=== PATIENT | male | born 1955 | race Caucasian/White ===

== ENCOUNTER 2023-03-28 03:48 | Emergency (ER) | payer OTHER ==
[~2023-03-28] VITALS: Ht 167.6 cm; Wt 90.7 kg
== END 2023-03-28 04:30 | disposition left against medical advice (07) ==
LOC: ED 03:48
DX: R06.02 Shortness of breath (principal)

== ENCOUNTER 2023-06-02 22:04 | Inpatient (IN) | payer OTHER ==
[~2023-06-02 22:04] MED LIST: DESMOPRESS10 MCG/0.1 INH; DICYCLOMINE HYD10 MG PO; LEVOTHYROXINE150 MCG PO; LINZESS290 MC1 PO; LUBIPROSTONE24 MCG PO; ONDANSETRON ODT8 MG PO; SENNA8.6 MG PO
[2023-06-02 22:15] VITALS: BP 88/57
== END 2023-06-03 11:30 | DRG 871 ==
LOC: 4E 22:04
PROVIDERS: ADMIT Student in an Organized Health Care Education/Training Program; ATTEND Student in an Organized Health Care Education/Training Program
DX: A41.9 Sepsis, unspecified organism (principal); I21.4 Non-ST elevation (NSTEMI) myocardial infarction; J18.9 Pneumonia, unspecified organism; N17.0 Acute kidney failure with tubular necrosis; J96.01 Acute respiratory failure with hypoxia; E87.0 Hyperosmolality and hypernatremia; E44.0 Moderate protein-calorie malnutrition; E87.8 Other disorders of electrolyte and fluid balance, not elsewhere classified; R74.01 Elevation of levels of liver transaminase levels; R65.20 Severe sepsis without septic shock; Z66 Do not resuscitate; Z51.5 Encounter for palliative care; Z79.899 Other long term (current) drug therapy; Z68.31 Body mass index [BMI] 31.0-31.9, adult